=== PATIENT | female | born 1965 | race Hispanic/Latino ===

== ENCOUNTER 2021-08-24 16:29 | Emergency (ER) | payer MEDICARE ==
[2021-08-24 19:12] LABS: Basophils # (Auto) 0.1 K/mm3 (0.0-0.1); Basophils % (Auto) 1.8 % (0.0-1.8); Eosinophils # (Auto) 0.2 K/mm3 (0.0-0.4); Eosinophils % (Auto) 2.9 % (0.0-4.3); Hematocrit 37.2 % (30.3-42.9); Hemoglobin 12.7 gm/dl (10.1-14.3); Lymphocytes # (Auto) 2.6 K/mm3 (1.2-5.4); Lymphocytes % (Auto) 38.3 % (13.4-35.0); Mean Corpuscular HGB Conc 34 % (30-34); Mean Corpuscular Volume 93 fl (79-97); Monocytes # (Auto) 0.5 K/mm3 (0.0-0.8); Monocytes % (Auto) 7.4 % (0.0-7.3); Platelet Count 249 K/mm3 (140-440); Red Blood Count 4.01 M/mm3 (3.65-5.03)
--- NOTE | 2021-08-24 19:13 | Emergency Department Report ---
HPI - General Chief Complaint: Alcohol Time Seen by Provider: 08/24/21 18:30 - HPI HPI: Reassessment 2 The patient is a 55-year-old female present with a chief complaint of medical clearance for detox. Patient has a history of polysubstance abuse including heroin and fentanyl. Patient admits to IVDA. Patient states she has a bed available at [facility] for detox but she was sent here for medical clearance first. Patient states she last used approximately 8 hours ago. ED Past Medical Hx - Past Medical History Previous Medical History?: Yes Hx Hypertension: Yes Hx Psychiatric Treatment: Yes (Heroin use, Fentanyl) Hx COPD: Yes Additional medical history: CAD. Angina - Surgical History Past Surgical History?: Yes Additional Surgical History: Hysterectomy - Family History Family history: no significant - Social History Smoking Status: Current Every Day Smoker Substance Use Type: Alcohol, Heroin, Other (Fentanyl, IVDA) ED Review of Systems ROS: Stated complaint: DETOX Other details as noted in HPI Constitutional: no symptoms reported Eyes: denies: eye pain ENT: denies: throat pain Respiratory: no symptoms reported Cardiovascular: denies: chest pain Endocrine: no symptoms reported Gastrointestinal: denies: abdominal pain Genitourinary: denies: dysuria Neurological: denies: headache Physical Exam - Physical Exam Vital Signs: Vital Signs 08/24/21 16:51 Temperature 97.8 F Pulse Rate 63 Respiratory 18 Rate Blood Pressure 99/57 O2 Sat by Pulse 98 Oximetry Vital Signs 08/24/21 08/24/21 08/24/21 16:51 22:02 22:11 Temperature 97.8 F Pulse Rate 63 Pulse Rate [ 69 Lying] Pulse Rate [ 72 Sitting] Pulse Rate [ 64 Standing] Respiratory 18 18 Rate Blood Pressure 99/57 Blood Pressure 93/52 [Lying] Blood Pressure 109/64 [Sitting] Blood Pressure 123/71 [Standing] O2 Sat by Pulse 98 97 Oximetry Physical Exam: GENERAL: The patient is well-developed well-nourished female lying on stretcher asleep but awakens to light touch. [] HEENT: Normocephalic. Atraumatic. Extraocular motions are intact. Patient has moist mucous membranes. NECK: Supple. Trachea midline CHEST/LUNGS: Clear to auscultation. There is no respiratory distress noted. HEART/CARDIOVASCULAR: Regular. There is no tachycardia. There is no gallop rub or murmur. ABDOMEN: Abdomen is soft, nontender. Patient has normal bowel sounds. There is no abdominal distention. SKIN: There is no rash. There is no edema. There is no diaphoresis. NEURO: The patient is initially asleep in the chair but awakens to light touch and verbal stimuli. Patient awakens to become alert and oriented. The patient is cooperative. The patient has no focal neurologic deficits. The patient has normal speech MUSCULOSKELETAL: There is no evidence of acute injury. ED Course Vital Signs 08/24/21 16:51 Temperature 97.8 F Pulse Rate 63 Respiratory 18 Rate Blood Pressure 99/57 O2 Sat by Pulse 98 Oximetry - Reevaluation(s) Reevaluation #1: 08/24/21 22:35 Patient now awake and ambulatory ED Medical Decision Making - Lab Data Result diagrams: 08/24/21 19:03 08/24/21 19:03 Laboratory Tests 08/24/21 08/24/21 08/24/21 19:03 19:03 19:03 WBC 6.7 RBC 4.01 Hgb 12.7 Hct 37.2 MCV 93 MCH 32 MCHC 34 RDW 13.0 L Plt Count 249 Lymph % (Auto) 38.3 H Hamilton % (Auto) 7.4 H Eos % (Auto) 2.9 Baso % (Auto) 1.8 Lymph # (Auto) 2.6 Hamilton # (Auto) 0.5 Eos # (Auto) 0.2 Baso # (Auto) 0.1 Seg Neutrophils % 49.6 Seg Neutrophils # 3.3 Sodium Potassium Chloride Carbon Dioxide Anion Gap BUN Creatinine Estimated GFR BUN/Creatinine Ratio Glucose Calcium Total Bilirubin AST ALT Alkaline Phosphatase Total Protein Albumin Albumin/Globulin Ratio Urine Color Urine Turbidity Urine pH Ur Specific [place] Urine Protein Urine Glucose (UA) Urine Ketones Urine Blood Urine Nitrite Ur Reducing Substances Urine Bilirubin Urine Ictotest Urine Urobilinogen Ur Leukocyte Esterase Urine WBC (Auto) Urine RBC (Auto) U Epithel Cells (Auto) Urine Mucus Salicylates < 0.3 L Urine Opiates Screen Urine Methadone Screen Acetaminophen 5.0 L Ur Barbiturates Screen Ur Phencyclidine Scrn Ur Amphetamines Screen U Benzodiazepines Scrn Urine Cocaine Screen U Marijuana (THC) Screen Drugs of Abuse Note Plasma/Serum Alcohol 08/24/21 08/24/21 08/24/21 19:03 19:03 19:23 WBC RBC Hgb Hct MCV MCH MCHC RDW Plt Count Lymph % (Auto) Hamilton % (Auto) Eos % (Auto) Baso % (Auto) Lymph # (Auto) Hamilton # (Auto) Eos # (Auto) Baso # (Auto) Seg Neutrophils % Seg Neutrophils # Sodium 139 Potassium 4.0 Chloride 103.8 Carbon Dioxide 26 Anion Gap 13 BUN 15 Creatinine 0.7 Estimated GFR > 60 BUN/Creatinine Ratio 21 Glucose 102 H Calcium 9.1 Total Bilirubin 0.20 AST 16 ALT 20 Alkaline Phosphatase 117 Total Protein 7.7 Albumin 3.8 L Albumin/Globulin Ratio 1.0 Urine Color Yellow Urine Turbidity Clear Urine pH 5.0 Ur Specific [place] > 1.030 H Urine Protein 30 mg/dl Urine Glucose (UA) Negative Urine Ketones Negative Urine Blood Moderate A Urine Nitrite Negative Ur Reducing Substances Not Reportable Urine Bilirubin Negative Urine Ictotest Not Reportable Urine Urobilinogen 0.0 Ur Leukocyte Esterase Negative Urine WBC (Auto) 69.0 H Urine RBC (Auto) 43.0 U Epithel Cells (Auto) 5.0 Urine Mucus 3+ Salicylates Urine Opiates Screen Urine Methadone Screen Acetaminophen Ur Barbiturates Screen Ur Phencyclidine Scrn Ur Amphetamines Screen U Benzodiazepines Scrn Urine Cocaine Screen U Marijuana (THC) Screen Drugs of Abuse Note Plasma/Serum Alcohol < 0.01 08/24/21 19:23 WBC RBC Hgb Hct MCV MCH MCHC RDW Plt Count Lymph % (Auto) [place] % (Auto) Eos % (Auto) Baso % (Auto) Lymph # (Auto) [place] # (Auto) Eos # (Auto) Baso # (Auto) Seg Neutrophils % Seg Neutrophils # Sodium Potassium Chloride Carbon Dioxide Anion Gap BUN Creatinine Estimated GFR BUN/Creatinine Ratio Glucose Calcium Total Bilirubin AST ALT Alkaline Phosphatase Total Protein Albumin Albumin/Globulin Ratio Urine Color Urine Turbidity Urine pH Ur Specific [place] Urine Protein Urine Glucose (UA) Urine Ketones Urine Blood Urine Nitrite Ur Reducing Substances Urine Bilirubin Urine Ictotest Urine Urobilinogen Ur Leukocyte Esterase Urine WBC (Auto) Urine RBC (Auto) U Epithel Cells (Auto) Urine Mucus Salicylates Urine Opiates Screen Negative Urine Methadone Screen Negative Acetaminophen Ur Barbiturates Screen Negative Ur Phencyclidine Scrn Negative Ur Amphetamines Screen Negative U Benzodiazepines Scrn Positive Urine Cocaine Screen Positive U Marijuana (THC) Screen Negative Drugs of Abuse Note Disclamer Plasma/Serum Alcohol - Differential Diagnosis Polysubstance abuse Critical care attestation.: If time is entered above; I have spent that time in minutes in the direct care of this critically ill patient, excluding procedure time. ED Disposition Clinical Impression: Polysubstance abuse Disposition: [facility]PAT[facility]ILITY Is pt being admited?: No Does the pt Need Aspirin: No Condition: Stable Instructions: Substance Use Disorder Additional Instructions: Return to the emergency department should you develop worsening symptoms, inability to tolerate food or liquids, high fever or any other concerns Time of Disposition: 22:35
[2021-08-24 19:37] LABS: Alanine Aminotransferase 20 units/L (7-56); Albumin 3.8 g/dL (3.9-5); Blood Urea Nitrogen 15 mg/dL (7-17); Calcium 9.1 mg/dL (8.4-10.2); Hemolysis Index 7
[2021-08-24 19:43] LABS: BUN/Creatinine Ratio 21
[2021-08-24 20:25] LABS: Mucus,Urine 3+ /HPF
[2021-08-24 20:26] LABS: Color,Urine Yellow (Yellow)
[2021-08-24 20:27] LABS: Bilirubin,Urine Negative (Negative); Blood,Urine Moderate (Negative)
[2021-08-24 20:41] LABS: Amphetamine Screen,Urine Negative; Cannabinoid Screen,Urine Negative; Methadone Screen,Urine Negative; Opiate Screen,Urine Negative
[2021-08-24] MEDS ORDERED: levoFLOXacin 500 MG TAB PO ONE (20:42)
[2021-08-24 21:05] LABS: Benzodiazepines Screen,Urine Positive; Cocaine Screen,Urine Positive
[2021-08-24 22:14] VITALS: BP 109/64
== END 2021-08-24 23:04 ==
LOC: ED 16:29
DX: F19.10 Other psychoactive substance abuse, uncomplicated (principal); I10 Essential (primary) hypertension; J44.9 Chronic obstructive pulmonary disease, unspecified; Z90.710 Acquired absence of both cervix and uterus; F17.200 Nicotine dependence, unspecified, uncomplicated; Z79.899 Other long term (current) drug therapy
CPT/HCPCS: 36415; 80053; 80307; 80320; 81001; 85025; 87086; 99283; G0480